=== PATIENT | female | born 2000 | race Caucasian/White ===

== ENCOUNTER 2022-04-08 12:09 | Outpatient (CLI) | payer BC, SELFPAY ==
[2022-04-08 13:01] LABS: Alanine Aminotransferase 28 U/L (6-35); Albumin Level 4.6 g/dL (3.5-5.1); Alkaline Phosphatase 66 U/L (38-126); Aspartate Amino Transferase 38 U/L (14-36); Bilirubin,Total 0.4 mg/dL (0.2-1.3); Cholesterol 215 mg/dL (0-200); HDL Direct 52 mg/dL; Triglycerides 94 mg/dL (<150)
[2022-04-08 13:06] LABS: Pregnancy On Board Control Positive; Urine Pregnancy Test Negative
[2022-04-08 13:37] LABS: LDL Cholesterol Direct 120 mg/dL
== END 2022-04-08 12:10 | disposition home or self-care (01) ==
LOC: ANHLAB 12:17
DX: L70.0 Acne vulgaris (principal); L85.3 Xerosis cutis
CPT/HCPCS: 36415; 80061; 80076; 81025

== ENCOUNTER 2022-06-10 07:35 | Outpatient (CLI) | payer BC, SELFPAY ==
[2022-06-10 08:16] LABS: Alanine Aminotransferase 27 U/L (6-35); Albumin Level 4.6 g/dL (3.5-5.1); Alkaline Phosphatase 61 U/L (38-126); Aspartate Amino Transferase 34 U/L (14-36); Bilirubin,Total 0.4 mg/dL (0.2-1.3); Cholesterol 170 mg/dL (0-200); HDL Direct 52 mg/dL; Triglycerides 143 mg/dL (<150)
[2022-06-10 08:27] LABS: LDL Cholesterol Direct 76 mg/dL
[2022-06-10 08:32] LABS: Beta HCG Quantitative < 2.39 mIU/ML
== END 2022-06-10 07:36 | disposition home or self-care (01) ==
LOC: ANHLAB 07:38
DX: L70.0 Acne vulgaris (principal)
CPT/HCPCS: 36415; 80061; 80076; 84702